=== PATIENT | female | born 1995 | race Hispanic/Latino ===

== ENCOUNTER → 2020-05-22 | Outpatient (CLI) | payer MEDICAID | END | disposition home or self-care (01) | LOC: RAH 15:27 | PROVIDERS: ATTEND Physical Medicine & Rehabilitation | DX: N20.0 Calculus of kidney (principal); M41.86 Other forms of scoliosis, lumbar region; G80.0 Spastic quadriplegic cerebral palsy | CPT/HCPCS: 74150 ==